=== PATIENT | female | born 1995 | race African-American/Black ===

== ENCOUNTER 2021-09-06 11:57 | Emergency (ER) | payer OTHER ==
[~2021-09-06] VITALS: Ht 162.6 cm; Wt 68.2 kg
[2021-09-06] MEDS ORDERED: FAMOTIDINE 10 MG/ML 2 ML VIAL IVP ONE (12:30)
[2021-09-06] MEDS ORDERED: ONDANSETRON HCL 4 MG/2 ML VIAL IVP ONE (12:30)
[2021-09-06] MEDS ORDERED: SODIUM CHLORIDE 0.9% 1,000 ML IV ONE (12:30)
[2021-09-06 13:14] LABS: BASOPHILS % (AUTO) 0.2 % (0.0-2.0); EOSINOPHILS % (AUTO) 0.2 % (1.0-6.0); HEMATOCRIT 42.4 % (36-46); HEMOGLOBIN 13.8 g/dL (12.0-16.0); LYMPHOCYTES # (AUTO) 0.4 K/uL (1.0-4.8); LYMPHOCYTES % (AUTO) 3.4 % (22.0-44.0); MEAN CORPUSCULAR HEMOGLOBIN 28.6 pg (26.0-34.0); MEAN CORPUSCULAR HGB CONC 32.6 G/dL (31.0-37.0); MEAN CORPUSCULAR VOLUME 88 fL (80-100); MONOCYTES # (AUTO) 0.4 K/uL (0.1-1.0); MONOCYTES % (AUTO) 4.1 % (2.0-9.0); NEUTROPHILS # (AUTO) 9.5 K/uL (1.8-7.7); RED BLOOD CELL COUNT(AUTO) 4.84 MIL/uL (4.00-5.20)
[2021-09-06 13:16] LABS: NEUTROPHILS % (AUTO) 92.1 % (40.0-70.0)
[2021-09-06 13:30] LABS: ANION GAP 9 mmol/L (8-16); CARBON DIOXIDE 24 mmol/L (22-29); CHLORIDE 107 mmol/L (98-107); CREATININE 0.76 mg/dL (0.60-1.30); GLOMERULAR FILTR. RATE CALC > 60 mL/min (>60); GLUCOSE,RANDOM 82 mg/dL (70-110); POTASSIUM 4.1 mmol/L (3.5-5.1); SODIUM SERUM 140 mmol/L (136-145); UREA NITROGEN, BLOOD 11 mg/dL (7-18)
[2021-09-06 13:35] VITALS: BP 110/62
[2021-09-06 13:36] LABS: PLATELET COUNT (AUTO) 127 K/uL (150-450)
[2021-09-06 13:43] LABS: HCG,QUANTITATIVE < 1 mIU/mL (0-6)
[2021-09-06 14:02] LABS: ALANINE AMINOTRANSFERASE 25 U/L (12-78); ALBUMIN 4.2 g/dL (3.4-5.0); ALKALINE PHOSPHATASE 60 U/L (46-116); ASPARTATE AMINOTRANSFERASE 14 U/L (15-37); BILIRUBIN,TOTAL 0.5 mg/dL (0.1-1.0); LIPASE 121 U/L (73-393)
[2021-09-06] MEDS ORDERED: ONDA-104 PO (14:44)
== END 2021-09-06 14:58 | disposition home or self-care (01) ==
LOC: EMS 12:14
DX: A05.9 Bacterial foodborne intoxication, unspecified (principal); J45.909 Unspecified asthma, uncomplicated; F17.200 Nicotine dependence, unspecified, uncomplicated; F12.90 Cannabis use, unspecified, uncomplicated; Z88.0 Allergy status to penicillin
CPT/HCPCS: 36415; 80053; 83690; 84702; 85025; 96361; 96374; 96375; 99284; J2405; J3490; J7030